=== PATIENT | female | born 1975 | race Caucasian/White ===

== ENCOUNTER 2025-03-30 09:47 | Emergency (ER) | payer BC, SELFPAY ==
[2025-03-30] VITALS (20 sets, daily range): BP systolic 141–156; BP diastolic 75–94; PULSE 86–120; RESP 6–40; TEMP 37; O2SAT 95–98; BMI 43.3
--- OUTSIDE RECORDS SUMMARY | 2025-03-30 09:49 | XMS_ITS | Clinical Summary ---
Author Organization [employer] [facility] Address [address] [place] [id number] Care Team Providers Care Casket Liner Name Role Phone Salome Buchanan Primary Care Provider [phone] Allergies Active Allergy Reactions Criticality Noted Date Comments Penicillins *Unknown - Childhood Rxn 02/24/2013 Sulfa (Sulfonamide Antibiotics) *Unknown - Childhood Rxn 02/24/2013 Medications blood sugar diagnostic (Contour Next Test Strips) stripIndications :Type 2 diabetes mellitus without complication, without long-term current use of insulin (HC) E11.65 NIDDM type II, uncontrolled - Test 3 times/day, Reason: High A1C 100 Each 5 3 Active lancets (Microlet Lancet)Indicatio ns:Type 2 diabetes mellitus without complication, without long-term current use of insulin (HC) Test 3 times daily 100 Each 5 3 Active buPROPion 75 mg HCl tabletIndication s:Class 3 severe obesity with serious comorbidity and body mass index (BMI) of 40.0 to 44.9 in adult, unspecified obesity type (HC),Dysthymia Take 1 Tablet (75 mg) by mouth once daily. Based on updated ISMP guidelines, DO NOT crush or chew. 90 Tablet 3 4 Active lisinopril-hydro chlorothiazide (10-12.5 mg) tablet (PRINZIDE; ZESTORETIC)Indic ations:Primary hypertension Take 1 Tablet by mouth once daily. 90 Tablet 1 4 Active polyethylene glycol-electroly te (GOLYTELY) 236-22.74-6.74 -5.86 gram suspensionIndica tions:Encounter for screening colonoscopy Drink 2 liters (half the bottle) the day before colonoscopy and 2 liters (remaining prep) 6 hours prior to colonoscopy appointment. 4000 mL 4 Active atorvastatin (LIPITOR) 40 mg tabletIndication s:Type 2 diabetes mellitus without complication, without long-term current use of insulin (HC),Hypertrigly ceridemia Take 1 Tablet (40 mg) by mouth at bedtime. 90 Tablet 3 4 Active glipiZIDE extended-release (GLUCOTROL XL) 5 mg Extended-Release tabletIndication s:Type 2 diabetes mellitus without complication, without long-term current use of insulin (HC) Take 1 Tablet (5 mg) by mouth once daily before a meal. 90 Tablet 1 4 Active Active Problems Problem Noted Date Diagnosed Date Type 2 diabetes mellitus wit hout complication, without long-term current use of insulin 07/26/2021 HTN (hypertension) 07/26/2021 Hypertriglyceridemia 05/05/2020 Anxiety disorder 09/18/2016 Tobacco use 03/22/2015 Vitamin D deficiency 08/04/2013 Dysthymia 05/19/2013 Encounters Date Type Department Care Team Description 03/30/2025 Nurse Triage [facility] [address] [place] [address] Salome Buchanan PA Follow Up; Chest Pain from Last 3 Months Immunizations Immunization Administration Dates Next Due DTP 1977 Influenza, IIV3 (Age >=3 years) 08/04/2013 Influenza, IIV4 07/16/2019,01/07/2019,11/13/2017 ,08/11/2015 MMR 02/27/1994 Td (Age >=7 Years) 02/27/1994 Tdap 07/16/2019,09/20/2009 Varicella Vaccine 04/13/2011 Family History Medical History Relation Name Comments Cancer-prostate Father Hyperlipidemia Father Cancer-colon Maternal Grandmother Diabetes Maternal Uncle Hypertension Mother Cancer-breast Paternal Aunt diagnosed in her 40s Cancer-breast Paternal Grandmother diagno sed in her 60s Other Sister Multiple sclero sis Relation Name Status Comments Father Maternal Grandmother Maternal Uncle Mother Paternal Aunt Paternal Grandmother Sister Social History Tobacco Use Types Packs/Day Years Used Date Smoking Tobacco: Every Day Cigarettes Smokeless Tobacco: Never Tobacco Cessation:Ready to Q uit: Not Asked; Counseling Given: Yes Alcohol Use Standard Drinks/Week Comments Yes 0 (1 standard drink = 0.6 oz pur e alcohol) rare glass of wine PHQ-2 Answer Date Recorded PHQ-2 TOTAL SCORE 0 08/25/2024 Social Connections Answer Date Recorded Frequency of Communication with Friends and Fami ly 0 11/28/2022 Financial Resource Strain Answer Date R ecorded Difficulty of Paying Living Expenses 3 11/28/2022 Difficulty of Paying Living Expenses Not on file 11/28/2022 Food Insecurity Answer Date Recorded Worried About Running Out of Food in the Last Ye ar 1 11/28/2022 Transportation Needs Answer Date Record ed Lack of Transportation (Medical) 1 11/28/2022 Housing Stability Answer Date Recorded Unable to Pay for Housing in the Last Year 1 11/28/2022 Comments No Sex and Gender Information Value Date Recorded Sex Assigned at Not on file Legal Sex Female 8:57 AM CDT Gender Identity Not on file Sexual Orientation Not on file Obstetrics History Para Term AB IAB SAB Ectopic Multiple Livin g Live Births 1 1 Date Outcome GA Total Labor Labor/2nd/3rd Weight Sex Type Anes PTL Ondina A1 A5 Name Clin 2008 Para Last Filed Vital Signs Vital Sign Reading Time Taken Comments Blood Pressure 161/81 10/13/2024 8:41 AM OIL RIGGER Pulse 116 10/13/2024 8:41 AM OIL RIGGER Temperature 37.1 C (98.7 F) 05/06/2020 10:20 AM CDT Respiratory Rate - - Oxygen Saturation 97% 10/13/2024 8:41 AM OIL RIGGER Inhaled Oxygen Concentration - - Weight 122.5 kg (270 lb) 10/13/2024 8:41 AM OIL RIGGER Height 165.1 cm (5' 5) 08/25/2024 8:07 AM CDT Body Mass Index 44.93 08/25/2024 8:07 AM CDT Plan of Treatment Scheduled Procedures Name Priority Associated Diagnoses Date/Ti me SURGICAL PROCEDURE (TYPE PROCEDURE DESCRIPTION BELOW) Encounter for screening colonoscopy Health Maintenance Due Date Last Done Comments Hepatitis B series for 19+ ( 1 of 3 - 19+ 3-dose series) 1996 Pneumococcal series for age 6-49 (1 of 2 - PCV) 1996 Colonoscopy through age 75 2022 COVID-19 vaccine series ( - 2023- season) 2024 Pap test for age 21-65 07/16/2024 9, 07/16/2019, 08/04/2013 Influenza Vaccine (Season Ended) 2025 07/16/2019, 01/07/2019, 11/13/2017, Additional history exists BMI (ht and wt on same day) for age 18+ 08/25/2025 08/25/2024, 11/28/2022, 06/27/2021, Additional history exists Depression screening for age 12+ 08/25/2025 08/25/20 Mammogram for age 45-75 09/24/2025 09/24/20, 07/26/2021, 07/16/2019 Tetanus booster 07/16/2029 07/16/2019, 09/11, 02/27/1994 Lipids for age 45-75 08/25/2029 08/25/2024, 11/28/2022, 06/27/2021, Additional history exists Tdap Completed 07/16/2019, 09/20/2009 HIV for age 15-65 Completed 11/28/2022 Hepatitis C screening for ag e 18-79 Completed 11/28/2022 Procedures Procedure Name Priority Date/Time Associated Diagnosis Comments XR MAMMO MIN BILAT SCREEN Routine 09/24/2024 7:58 AM OIL RIGGER Encounter for screening mammogram for malignant neoplasm of breast LIPID PANEL W REFLEX MEASURED LDL Routine 08/25/2024 9:03 AM CDT Type 2 diabetes mellitus without complication, without long-term current use of insulin (HC) LC HIV-1/O/2, 4TH GENERATION Routine 11/28/2022 10:59 AM OIL RIGGER Screening for HIV (human immunodeficiency virus) LC HCV ANTIBODY RFX TO QUANT PCR Routine 11/28/2022 10:59 AM OIL RIGGER Need for hepatitis C screening test HPV HIGH RISK Routine 07/16/2019 9:19 AM CDT Screening for malignant neoplasm of cervix from Last 3 Months or Most Recently Relevant to Health Maintenance Results * XR MAMMO MIN BILAT SCREEN (09/24/2024 7:58 AM OIL RIGGER) Anatomical Region Laterality Modality BREASTS, Breast Left, Breast Right Bilateral Mammography Impressions 09/24/2024 3:09 PM OIL RIGGER There is no radiographic evidence for malignancy. Recommend annual mammograms. MAMMOGRAM ASSESSMENT: ACR 1 Negative PATIENTS: You will also receive a letter with your examination results in an easy to read format. If you have questions about your results, please contact your referring provider. Narrative 09/24/2024 3:09 PM OIL RIGGER For Patients: As a result of the Century Cures Act, medical imaging exams and procedure reports are released immediately into your electronic medical record. You may view this report before your referring provider. If you have questions, please contact your health care provider. XR MAMMO MIN BILAT SCREEN [[id number]] CLINICAL HISTORY: This is an asymptomatic 49 y.o. patient. INDICATION FOR EXAM: Mammogram Screening. TECHNIQUE: CC & MLO views were obtained. This study was evaluated with the assistance of Computer-Aided Detection. Breast Tomosynthesis was used in interpretation. COMPARISON FILM: Yes 07/26/21 [facility] 07/16/19 [facility] FINDINGS: The breasts are almost entirely fatty. There are no dominant masses, suspicious micro calcifications or areas of architectural distortion. us Salome HAYDEN MAMMO Final Resu lt * (ABNORMAL) LIPID PANEL W REFLEX MEASURED LDL (08/25/2024 9:03 AM CDT) CHOLESTEROL, TOTAL 276(H) <200 mg/dL [facility] [place] HDL CHOLESTEROL 38(L) > OR = 50 mg/dL [facility] [place] TRIGLYCERIDES 356(H) <150 mg/dL [facility] [place] Comment: If a non-fasting specimen was collected, consider repeat triglyceride testing on a fasting specimen if clinically indicated. Sumit et al. J. of Clin. Lipidol. 2015;9:129-169. LDL-CHOLESTEROL 178(H) mg/dL (calc) [facility] [place] Comment: Reference range: <100 Desirable range <100 mg/dL for primary prevention; <70 mg/dL for patients with CHD or diabetic patients with > or = 2 CHD risk factors. LDL-C is now calculated using the Nazanin calculation, which is a validated novel method providing better accuracy than the Friedewald equation in the estimation of LDL-C. Carlos CISNEROS et al. KATHERYN. 2013;310(50): 7575-9133 (http://education.Mygistics/faq/YIX125) CHOL/HDLC RATIO 7.3(H) <5.0 (calc) [facility] NON HDL CHOLESTEROL 238(H) <130 mg/dL (calc) [facility] Comment: Non-HDL level > or = 220 is very high and may indicate genetic familial hypercholesterolemia (FH). Clinical assessment and measurement of blood lipid levels should be considered for all first-degree relatives of patients with an FH diagnosis. For patients with diabetes plus 1 major ASCVD risk factor, treating to a non-HDL-C goal of <100 mg/dL (LDL-C of <70 mg/dL) is considered a therapeutic option. Blood BLOOD SPECIMEN / Unknown 08/25/2024 9:03 AM CDT 08/25/2024 9:04 AM CDT Salome HAYDEN CHEMISTRY Final Resu lt [employer] [facility] [address] [place] [address], [facility] [address] [address] * LC HCV ANTIBODY RFX TO QUANT PCR (11/28/2022 10:59 AM OIL RIGGER) HCV Ab <0.1 0.0 - 0.9 s/co ratio 11/30/2022 9:06 PM OIL RIGGER [facility] Blood BLOOD SPECIMEN / Unknown Venipuncture / Unknown 11/28/2022 10:59 AM OIL RIGGER 11/28/2022 11:03 AM OIL RIGGER Narrative [facility]) - 11/30/2022 9:06 PM OIL RIGGER Performed at: [address] [id number] Remotely Piloted Vehicle Controller: Martin Chakraborty MD, Phone: [phone] [facility] Final Resu lt Performing Organization Address [facility] Co de Phone Number [facility] ([facility]) [address] [place] [address] * LC HIV-1/O/2, 4TH GENERATION (11/28/2022 10:59 AM OIL RIGGER) HIV Scr 4th Gen Non Reactive Non Reactive 11/30/2022 3:09 PM OIL RIGGER [facility] Comment: HIV Negative HIV-1/HIV-2 antibodies and HIV-1 p24 antigen were NOT detected. There is no laboratory evidence of HIV infection. Blood BLOOD SPECIMEN / Unknown Venipuncture / Unknown 11/28/2022 10:59 AM OIL RIGGER 11/28/2022 11:03 AM OIL RIGGER Narrative [facility] ([facility]) - 11/30/2022 3:09 PM OIL RIGGER Performed at: [address] [place] [id number] Remotely Piloted Vehicle Controller: Martin Chakraborty MD, Phone: [phone] [facility] Final Resu lt Performing Organization Address [facility] Co de Phone Number [facility] ([facility]) [address] [place] [address] * HPV HIGH RISK (07/16/2019 9:19 AM CDT) HPV RESULTS Negative Negative 07/20/2019 2:21 PM CDT [facility] Comment: HPV types 16, 18, 31, 33, 35, 39, 45, 51, 52, 56, 58, 59, 66 and 68 DNA were undetectable or below the pre-set threshold. Other (Cervical) Non-Blood / Unknown 07/16/2019 9:19 AM CDT 07/17/2019 10:14 AM CDT Narrative [facility] - 07/20/2019 2:21 PM CDT Methodology: Dominic Liu 4800 HPV Test us Namita HAYDEN MICROBIOLOG[facility] Final Resu lt [facility] [address] [place] [address], from Last 3 Months or Most Recently Relevant to Health Maintenance Insurance [employer] Member Subscriber Plan / Payer (Ef fective 2015-Present) Name:Patricia Santos Relation to Subscriber:Employee Name:[employer] Date of :1998 (Home) Address: [address] [place] [id number] Payer ID:Not on file Group ID:Not on file Type:Not on file Address: [address] [facility] [address] [place] [address] Care Teams Casket Liner Relationship Specialty Start Date End Date Salome Buchanan PA [address] [place] [address] PCP - General Physician Box Inspector 08/25/24
--- NOTE | 2025-03-30 10:37 | ED_ITS ---
HPI - Chest Pain General Date Seen: 03/30/25 Chief Complaint: Chest Pain Stated Complaint: Chest Pains Time Seen by Provider: 03/30/25 10:35 History of Present Illness HPI narrative: 49-year-old female presenting to the ER today for chest pain. She had fairly mild symptoms beginning 2-3 days ago last Saturday. (of note nurse triage note says that she has been having pain since last week, but does not exactly accurate. She says she did have a little bit of chest discomfort last Saturday when her daughter was having an anxiety attack and she felt that was just related to that situation. She had been well through Saturday.) Beginning on Saturday she started having intermittent very mild discomfort in her left chest under her left breast and sometimes radiating to her left shoulder, but not down her left arm. The pain was persistent off and on throughout the day on Saturday and yesterday on Saturday. It was present more than it was absent. It would seem to come and go without any clear pattern. It does not seem to relate to activity, exertion, position, breathing, or eating. It just comes and goes. It feels very mild like an ache. No other symptoms. She is not short of breath. No palpitations. No nausea. No cough. No swelling in her arms. She does note that she has a little bit of edema in her legs. She also notes that she is overweight and is working hard to lose weight but is frustrated because she can not. She knows she is supposed to be on meds for blood pressure and possibly on meds for weight loss but she has been trying hard to take care of herself by lifestyle changes. She says she is he now resolved to get back with her doctor and started on meds. She is a smoker. Related Data Home Medications ?Medication ?Instructions ?Recorded ?Confirmed No Known Home Medications 03/30/2503/12 Allergies Allergy/AdvReac Type Severity Reaction Status Date / Time Penicillins Allergy Unknown Verified 07/29/24 15:41 Sulfa (Sulfonamide Allergy Unknown Verified 07/29/24 15:41 Antibiotics) [facility] Social History Smoking Status: Current every day smoker What tobacco products do you use: cigarettes How often do you have a drink containing alcohol: never How often do you have six or more drinks on one occasion: Never AUDIT-C Alcohol total score: 0 Non-prescribed substance use: denies use Exam Narrative Exam Narrative: Constitutional: Appears well-developed and well-nourished. Alert. Conversant but at times tearful and worried. Very polite.. Non toxic. HENT: Head: Atraumatic. Nose: Nose normal. Mouth/Throat: Oral mucosa is clear and moist. no trismus. Pharynx normal. Eyes: Conjunctivae normal. EOM normal. Pupils equal, round, and reactive to light. No scleral icterus. Neck: Normal range of motion. Neck supple. No tracheal deviation present. No JVD Cardiovascular: Tachycardic e, regular rhythm. No gallop. No friction rub. No murmur heard. Symmetric radial and PT artery pulses Pulmonary/Chest: Effort normal. No stridor. No respiratory distress. No wheezes. No rales. No rhonchi . No tenderness. Abdominal: Soft.. No distension. No mass. No tenderness. No rebound. No guarding. Musculoskeletal: RUE: Normal range of motion. No tenderness. No deformity LUE: Normal range of motion. No tenderness. No deformity RLE: Normal range of motion. No edema. No tenderness. No deformity LLE: Normal range of motion. No edema. No tenderness. No deformity Note, although the patient says she is feeling edema in her leg she really does not have any palpable pitting edema on my exam. Neurological: Alert and oriented to person, place, and time. Normal strength. CN II-VII intact. No sensory deficit. GCS eye subscore is 4. GCS verbal subscore is 5. GCS motor subscore is 6. Normal coordination Skin: Skin is warm and dry. No rash noted. No pallor. Normal capillary refill. Psychiatric: Polite. Initially somewhat anxious because she is worried she might be having heart attack.. Overall very conversant. I do not get the sense that there is a significant anxiety attack contributing to her symptoms. Const Vital Signs, click to edit/add: Vital Signs - 24 hr 03/30/25 10:04 03/30/25 10:32 03/30/25 11:02 Temperature 98.6 F Pulse Rate 105 H 95 Pulse Rate [Pulse Oximeter] 120 H Respiratory Rate 20 11 L Blood Pressure 150/77 H 150/75 H Blood Pressure [Right Upper Arm] 153/93 H Pulse Oximetry 96 96 96 Oxygen Delivery Method Room Air 03/30/25 11:03 03/30/25 11:15 03/30/25 11:30 Temperature Pulse Rate 97 Pulse Rate [Pulse Oximeter] Respiratory Rate 40 H 18 15 Blood Pressure Blood Pressure [Right Upper Arm] Pulse Oximetry 96 Oxygen Delivery Method 03/30/25 11:48 03/30/25 12:23 03/30/25 12:30 Temperature Pulse Rate 97 91 Pulse Rate [Pulse Oximeter] Respiratory Rate 27 H 20 24 Blood Pressure Blood Pressure [Right Upper Arm] Pulse Oximetry 96 95 Oxygen Delivery Method 03/30/25 12:32 03/30/25 12:45 03/30/25 13:00 Temperature Pulse Rate 91 87 95 Pulse Rate [Pulse Oximeter] Respiratory Rate 17 Blood Pressure 150/88 H Blood Pressure [Right Upper Arm] Pulse Oximetry 96 96 96 Oxygen Delivery Method 03/30/25 13:15 03/30/25 13:19 03/30/25 13:30 Temperature Pulse Rate 89 91 88 Pulse Rate [Pulse Oximeter] Respiratory Rate 29 H 12 6 L Blood Pressure 145/94 H Blood Pressure [Right Upper Arm] Pulse Oximetry 95 97 97 Oxygen Delivery Method 03/30/25 13:32 Temperature Pulse Rate 87 Pulse Rate [Pulse Oximeter] Respiratory Rate 15 Blood Pressure 141/75 H Blood Pressure [Right Upper Arm] Pulse Oximetry 96 Oxygen Delivery Method Course Vital Signs Vital signs: Initial Vital Signs Temperature 98.6 F 03/30/25 10:04 Temperature Source Temporal Artery Scan 03/30/25 10:04 Pulse Rate 120 H 03/30/25 10:04 Respiratory Rate 20 03/30/25 10:04 Blood Pressure 153/93 H 03/30/25 10:04 Blood Pressure Mean 113 H 03/30/25 10:04 Blood Pressure Position Supine 03/30/25 10:04 Pulse Oximetry 96 03/30/25 10:04 Oxygen Delivery Method Room Air 03/30/25 10:04 Vital Signs Temperature 98.6 F 03/30/25 10:04 Pulse Rate 120 H 03/30/25 10:04 Respiratory Rate 20 03/30/25 10:04 Blood Pressure 153/93 H 03/30/25 10:04 Pulse Oximetry 96 03/30/25 10:04 Oxygen Delivery Method Room Air 03/30/25 10:04 Temperature 98.6 F 03/30/25 10:04 Pulse Rate 87 03/30/25 13:32 Respiratory Rate 15 03/30/25 13:32 Blood Pressure 141/75 H 03/30/25 13:32 Pulse Oximetry 96 03/30/25 13:32 Oxygen Delivery Method Room Air 03/30/25 10:04 Medications Administered Medications: Discontinued Medications Generic Name Dose Route Start Last Admin Trade Name Freq PRN Reason Stop Dose Admin Aspirin 324 mg 03/30/25 10:58 03/30/25 11:07 Aspirin 81 Mg Tab.Chew PO 03/30/25 10:59 324 mg ONCE ONE Administration MDM - Chest Pain MDM Narrative Medical decision making narrative: This patient presents to the ER today for evaluation of chest pain that is been happening most of the time but has been intermittent for the past couple of days. Differential was broad. No evidence of palpitations, syncope or other cardiac dysrhythmia. We considered possible ACS, however workup with EKG and troponin is negative. HEART score is 4. Initial troponin is normal. To our delta troponin is[] Given time since onset of symptoms, I do not think the patient needs to be admitted for further sets of enzymes. EKG shows no evidence for pericarditis. Clinical presentation not suggestive of myocarditis. Chest x-ray shows no evidence for pneumonia, pneumothorax, pulmonary edema, pleural effusion, rib fracture, cardiomegaly. Mediastinum is normal on the x-ray. The patient has no ripping or tearing pain through to the back and has symmetric pulses on exam, no other acute neuro findings so I doubt aortic dissection. Risk of radiation and contrast exposure would outweigh the benefit of CT angiogram. We considered PE for this patient. She is overall low risk but not 0 risk. She is not low risk by PERC. Therefore will obtain D-dimer. It is abnormal. CT PA shows no evidence for PE, pneumonia, pneumothorax, mediastinal abnormality. The CT scan does show a few scattered small pulmonary nodules. Six-month follow-up CT is recommended. Discussed in detail with the patient. No wheezing or bronchospasm to suggest COPD/asthma. No signs of chest wall cellulitis, shingles, injury. With reasonable clinical confidence, I think the patient is safe for outpatient follow up. Discussed return precautions. Questions answered. Patient voices comfort with the plan. Lab Data Labs: Lab Results 05/03/30/25 03/30/25 Range/Units 11:25 11:45 13:00 WBC 6.65 (4.50-11.00) K/uL RBC 4.90 (4.00-5.20) m/uL Hgb 15.0 (12.0-16.0) gm/dL Hct 43.8 (33.0-51.0) % MCV 89 (80-100) fL MCH 31 (26-34) pg MCHC 34 (32-36) gm/dL RDW Coeff of Berkley 11.8 (11.5-15.5) % Plt Count 357 (140-440) K/uL Neut % (Auto) 68.6 (42.0-72.0) % Lymph % (Auto) 24.1 (20-44) % [place] % (Auto) 5.7 (0.0-11.0) % Eos % (Auto) 1.2 (0.0-7.0) % Baso % (Auto) 0.2 (0.0-3.0) % Neut # (Auto) 4.57 (1.7-7.0) K/uL Lymph # (Auto) 1.60 (0.90-2.90) K/uL [place] # (Auto) 0.40 (0.00-0.90) K/UL Eos # (Auto) 0.08 (0.00-0.50) K/uL Baso # (Auto) 0.01 (0.00-0.30) K/uL Abs Immat Gran (auto) 0.01 (0.00-0.30) K/uL Imm/Tot Granulo (auto) 0.2 % D-Dimer Quant (PE/DVT) 0.66 H (0.00-0.50) ug/ml Sodium 135 (135-149) mmol/L Potassium 4.0 (3.6-5.1) mmol/L Chloride 106 (96-114) mmol/L Carbon Dioxide 24 (20-32) mmol/L Anion Gap 5 L (7-15) mEq/L BUN 7 (5-24) mg/dL Creatinine 0.5 (0.5-1.5) mg/dL Estimated Creat Clear 125.16 Estimated GFR 116 ml/min Glucose 245 H (60-115) mg/dL Calcium 9.3 (8.4-10.6) mg/dL Urine HCG, Qual Negative (Negative) POC Troponin I 0.01 (0.01-0.04) ng/ml Imaging Data Chest x-ray: Attestation: I have reviewed the pertinent imaging results. My impression: No acute pneumonia, infiltrate, pneumothorax. Mediastinum normal. Radiologist's impression: IMPRESSION: Negative chest. CT scan - chest: Attestation: I have reviewed the pertinent imaging results. Radiologist's impression: IMPRESSION: 1. No definite acute findings. Specifically, no evidence of pulmonary embolism. 2. Scattered small pulmonary nodules. The largest nodule is intrafissural on the right and could represent lymphoid tissue. However, follow-up chest CT at 6 months could be considered to ensure stability given size. ECG Data Attestation: I personally reviewed and interpreted this ECG as follows: Interpretation: Sinus tachycardia Rate: 112 [place]: 166 QRS axis: Normal axis. Q-waves in leads V1 and V2 ST segment/T wave: No ST segment elevation or depression. QTc: 444 Discharge Plan Discharge Clinical Impression: Chest pain, Pulmonary nodule Patient Disposition: Home, Self-Care Condition: Stable Instructions: Chest Pain (DC) Additional Instructions: As we discussed, so far the workup with the dangerous causes of chest pain looks reassuring. We do not see any sign of a heart attack. It for now his safe to keep an eye on your symptoms at home. However as we discussed, if you have worsening pain, trouble breathing, palpitations, fainting spells, or any other problems, please return to the emergency department right away. It is important for you to get a checkup with your doctor in the next 3-5 days to recheck after your chest pain. Have your doctor double check your blood pressure and if you have hypertension your doctor can get you started on the right medications Also, on your CT scan today the radiologist sees a few small nodules in your lungs (ranging in size from 4 mm- 8 mm). It is important for you to talk to your doctor about these nodules and arrange a repeat CT scan of your lungs in 6 months (Thanksgiving time) Prescriptions: No Action No Known Home Medications Follow Up/Referrals: Provider,Not a Local [Non-Staff, Family Practice] Stand Alone Forms: Addy Info Instructions
--- NOTE | 2025-03-30 10:58 | CRLHL7_ITS ---
For Patients: As a result of the Century Cures Act, medical imaging exams and procedure reports are released immediately into your electronic medical record. You may view this report before your referring provider. If you have questions, please contact your health care provider. INDICATION: Chest pain. TECHNIQUE: Chest 2 views. COMPARISON: None. FINDINGS: Cardiovascular and mediastinum: Heart size is normal. Unremarkable mediastinum. Lungs and pleural spaces: Lungs are clear. No sign of infiltrate or mass. No sign of pleural effusion. No pneumothorax. Bones and soft tissues: No significant findings. IMPRESSION: Negative chest. Dictated by José Gaviria MD @ 03/30/2025 12:40:21 PM (Electronically Signed)
[2025-03-30] MEDS: ASPIRIN 81 MG TAB.CHEW 324 MG PO (11:07)
[2025-03-30 11:38] LABS: Basophils Absolute Auto 0.01 K/uL (0.00-0.30); Basophils Percent Auto 0.2 % (0.0-3.0); Eosinophils Absolute Auto 0.08 K/uL (0.00-0.50); Eosinophils Percent Auto 1.2 % (0.0-7.0); Hematocrit 43.8 % (33.0-51.0); Immature Granulocytes Abs Auto 0.01 K/uL (0.00-0.30); Immature Granulocytes Pct Auto 0.2 %; Lymphocytes Percent Auto 24.1 % (20-44); Mean Corpuscular HGB Conc 34 gm/dL (32-36); Mean Corpuscular Hemoglobin 31 pg (26-34); Mean Corpuscular Volume 89 fL (80-100); Monocytes Percent Auto 5.7 % (0.0-11.0); Neutrophils Absolute Auto 4.57 K/uL (1.7-7.0); Neutrophils Percent Auto 68.6 % (42.0-72.0); Platelet Count* 357 K/uL (140-440); RDW Coefficient of Variation % 11.8 % (11.5-15.5); White Blood Count* 6.65 K/uL (4.50-11.00)
[2025-03-30 11:48] LABS: Slide Review Reflex No
[2025-03-30 11:50] LABS: Chloride* 106 mmol/L (96-114)
[2025-03-30 11:51] LABS: Sodium* 135 mmol/L (135-149)
[2025-03-30 11:53] LABS: Blood Urea Nitrogen* 7 mg/dL (5-24); Creatinine* 0.5 mg/dL (0.5-1.5); Est. Creatinine Clearance* 125.16; Estimated Glomerular Filt Rate 116 ml/min
[2025-03-30 11:54] LABS: Anion Gap 5 mEq/L (7-15); Calcium* 9.3 mg/dL (8.4-10.6); Carbon Dioxide* 24 mmol/L (20-32); Glucose* 245 mg/dL (60-115)
[2025-03-30 11:55] LABS: D Dimer Quantitative* 0.66 ug/ml (0.00-0.50)
[2025-03-30 11:56] LABS: Ur HCG Qualitative* Negative (Negative)
--- NOTE | 2025-03-30 12:07 | CRLHL7_ITS ---
For Patients: As a result of the 21st Century Cures Act, medical imaging exams and procedure reports are released immediately into your electronic medical record. You may view this report before your referring provider. If you have questions, please contact your health care provider. INDICATION: Chest pain, abnormal D-dimer. TECHNIQUE: CT chest PE was acquired with 95 cc Isovue 370 IV contrast. COMPARISON: None. FINDINGS: Heart and vasculature: Contrast opacification of the pulmonary arterial tree is adequate. No sign of pulmonary embolism. Heart size is normal. Thoracic aorta and pulmonary artery are normal in caliber. Lungs and pleura: No definite acute infiltrate. Multiple small noncalcified pulmonary, for example right upper lobe 4 mm nodules (/54, 580) and left upper lobe 4 mm nodule (). Right intrafissural nodule measuring 8 mm could represent lymphoid tissue (). Mild lower lobe bronchial wall thickening. Mild subsegmental atelectasis. No pleural effusions, pleural thickening, or pneumothorax. Lymph nodes/mediastinum: No mediastinal, hilar, or axillary adenopathy. Chest wall: No masses. Upper abdomen: No acute or significant findings. Small hiatal hernia. Bones: Unremarkable for age. IMPRESSION: 1. No definite acute findings. Specifically, no evidence of pulmonary embolism. 2. Scattered small pulmonary nodules. The largest nodule is intrafissural on the right and could represent lymphoid tissue. However, follow-up chest CT at 6 months could be considered to ensure stability given size. Please note that all CT scans at this facility use dose modulation, iterative reconstruction, and/or weight-based dosing when appropriate to reduce radiation dose to as low as reasonably achievable. Dictated by Adriano Varghese MD @ 03/30/2025 1:19:16 PM (Electronically Signed)
[2025-03-30 13:44] LABS: Troponin, Point-of-Care* 0.01 ng/ml (0.01-0.04)
== END 2025-03-30 14:10 | disposition home or self-care (01) ==
PROVIDERS: Emergency Provider Emergency Medicine; PCP Physician Assistant
DX: R07.9 Chest pain, unspecified (principal); R91.1 Solitary pulmonary nodule
CPT/HCPCS: 36415; 71046; 71275; 80048; 81025; 84484; 84703; 85025; 85379; 93005; 99283; 99284; 99285; A9270; Q9967